=== PATIENT | female | born 1970 | race Caucasian/White ===

== ENCOUNTER 2017-06-08 17:36 | Emergency (ER) | payer BC ==
[2017-06-08 18:42] LABS: Absolute Lymphocytes (CBC) 2.4 K/uL (0.7-4.9); Absolute Monocytes 0.6 K/uL (0.1-1.3); Absolute Neutrophil 7.7 K/uL (1.8-8.0); Basophils % 0.6 % (0-1.3); Eosinophils % 0.8 % (0-4.4); Hematocrit 42.8 % (36.0-45.0); Lymphocytes % 22.7 % (15.3-44.8); MCH 27.9 pg (27.0-35.0); MPV 8.8 fL (7.6-11.3); Monocytes % 5.2 % (3.3-12.3); RBC Red Blood Cell Count 5.36 M/uL (3.86-4.86)
[2017-06-08 18:54] LABS: Bicarbonate 26 mEq/L (21-31); Glucose Level 179 mg/dL (65-120); Lipase 19 U/L (22-51); Potassium 3.3 mEq/L (3.6-5.0); Sodium Level 136 mEq/L (135-145)
[2017-06-08] MEDS ORDERED: ONDANSETRON 4 MG/2 ML VIAL ONE (18:56)
[2017-06-08] MEDS ORDERED: NA CHLORIDE 0.9% 1,000 ML ONE (18:56)
[2017-06-08 19:00] LABS: ALT/SGPT 21 IU/L (10-60); AST/SGOT 19 IU/L (10-42); Albumin 4.3 g/dL (3.2-5.5); Alkaline Phosphatase 65 IU/L (42-121); Amylase Level 47 U/L (28-100); BUN Blood Urea Nitrogen 8 mg/dL (6-20); Bilirubin Direct 0.2 mg/dL (0-0.2); Glomerular Filtration Rate > 90 mL/min (=/>90); Protein, Total 7.5 g/dL (6.0-8.3)
[2017-06-08 19:31] LABS: Thyroid Stimulating Hormone 1.42 uIU/mL (0.34-5.60)
[2017-06-08] MEDS ORDERED: POTASSIUM CL SA 10 MEQ TAB PO ONE (19:59)
[2017-06-08] MEDS ORDERED: MECLIZINE HCL 12.5 MG TAB ONE (20:35)
--- NOTE | 2017-06-08 21:03 | ER ---
Nurse's Notes [facility] Name: Kandice Cisneros Age: 46 yrs Sex: Female : 1970 Arrival Date: 06/08/2017 Time: 17:36 Bed 20 Private MD: Diagnosis: Nausea and vomiting;Dizziness and giddiness Presentation: 06/08 18:03 Presenting complaint: Patient states: N/V and dizziness x 3 days. Not tolerating hb liquids. Actively vomiting in triage. Transition of care: patient was not received from another setting of care. Onset of symptoms was June 06, 2017. Care prior to arrival: None. 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 - Social history:: Smoking status: Patient/guardian denies using tobacco. Screenin:30 Abuse screen: Denies threats or abuse. Denies injuries from another. Nutritional aj1 screening: No deficits noted. Tuberculosis screening: No symptoms or risk factors identified. 21:52 Fall Risk None identified. aj1 Assessment: 18:30 General: Appears in no apparent distress. uncomfortable, Behavior is calm, cooperative, aj1 appropriate for age. Pain: Denies pain. 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 Full function Speech is normal, Facial symmetry appears normal, Reports dizziness. Cardiovascular: Patient's skin is warm and dry. Respiratory: Airway is patent Respiratory effort is even, unlabored, Respiratory pattern is regular, symmetrical, Breath sounds are clear bilaterally. GI: Abdomen is non-distended, Bowel sounds present X 4 quads. Abd is soft and non tender X 4 quads. Reports nausea, vomiting, Patient currently denies bloody stool, constipation, diarrhea. : No signs and/or symptoms were reported regarding the genitourinary system. EENT: No signs and/or symptoms were reported regarding the EENT system. Derm: No signs and/or symptoms reported regarding the dermatologic system. Skin is pink, warm \T\ dry. normal. Musculoskeletal: No signs and/or symptoms reported regarding the musculoskeletal system. Circulation, motion, and sensation intact. 19:45 Reassessment: PO challenge initiated. aj1 19:50 Reassessment: Patient appears in no apparent distress at this time. No changes from aj1 previously documented assessment. Patient and/or family updated on plan of care and expected duration. Pain level reassessed. Patient is alert, oriented x 3, equal unlabored respirations, skin warm/dry/pink. 21:00 Reassessment: Patient appears in no apparent distress at this time. No changes from aj1 previously documented assessment. Patient and/or family updated on plan of care and expected duration. Pain level reassessed. Patient is alert, oriented x 3, equal unlabored respirations, skin warm/dry/pink. 21:51 Reassessment: Patient appears in no apparent distress at this time. No changes from aj1 previously documented assessment. Patient and/or family updated on plan of care and expected duration. Pain level reassessed. Patient is alert, oriented x 3, equal unlabored respirations, skin warm/dry/pink. Vital Signs: 18:05 BP 222 / 110; Pulse 111; Resp 18; Temp 99; Pulse Ox 98% on R/A; Pain 2/10; hb 18:35 BP 154 / 82 Supine; Pulse 88; Resp 18; Pulse Ox 100% ; aj1 18:38 BP 172 / 81 Sitting; Pulse 86; aj1 18:41 BP 171 / 83 Standing; Pulse 90; aj1 19:18 BP 167 / 75; Pulse 87; Resp 18; Pulse Ox 98% on R/A; mt 20:31 BP 155 / 63; Pulse 89; Resp 16; Pulse Ox 100% on R/A; mt 21:50 BP 155 / 68; Pulse 82; Resp 18; Pulse Ox 99% ; aj1 ED Course: 17:36 Patient arrived in ED. as 18:00 Maty Quintero FNP-C is PHCP. kb 18:00 Prosper Verde MD is Attending Physician. kb 18:05 Triage completed. hb 18:05 Arm band placed on right wrist. hb 18:19 Narda Moeller, STEPHAN is Primary Nurse. aj1 18:30 Patient has correct armband on for positive identification. Bed in low position. Call aj1 light in reach. Side rails up X 1. Pulse ox on. NIBP on. 18:30 No provider procedures requiring assistance completed. Initial lab(s) drawn, by me, aj1 sent to lab. Inserted saline lock: 20 gauge in right antecubital area, using aseptic technique. Blood collected. 21:52 IV discontinued, intact, bleeding controlled, No redness/swelling at site. Pressure aj1 dressing applied. Administered Medications: 18:40 Drug: Zofran 4 mg Route: IVP; Site: right antecubital; aj1 19:44 Follow up: Response: No adverse reaction aj1 18:41 Drug: NS 0.9% 1000 ml Route: IV; Rate: 1000 ml; Site: right antecubital; aj1 19:44 Follow up: IV Status: Completed infusion; IV Intake: 1000ml aj1 19:45 Drug: Potassium Chloride 20 mEq Route: PO; aj1 20:19 Follow up: Response: No adverse reaction aj1 20:18 Drug: Meclizine 25 mg Route: PO; aj1 21:51 Follow up: Response: No adverse reaction aj1 Intake: 19:44 IV: 1000ml; Total: 1000ml. aj1 Outcome: 21:02 Discharge ordered by . leo 21:52 Discharged to home via wheelchair, with family. aj1 21:52 Condition: good 21:52 Discharge instructions given to patient, Instructed on discharge instructions, follow up and referral plans. medication usage, Demonstrated understanding of instructions, follow-up care, medications. 21:53 Patient left the ED. aj1 Signatures: Maty Quintero, ANGELES-C ANGELES-CkNarda Oliveira, RN RN aj1 Miracle Watt Heather, RN RN Francesco Sunst. [facility]
--- NOTE | 2017-06-08 21:03 | EDPHYS ---
Physician Documentation [facility] Name: Kandice Cisneros Age: 46 yrs Sex: Female : 1970 Arrival Date: 06/08/2017 Time: 17:36 Bed 20 Private MD: ED Physician Prosper Verde HPI: 06/08 18:13 This 46 yrs old Female presents to ER via Ambulatory with complaints of kb Dizziness, Vomiting. 18:13 The patient presents to the emergency department with nausea, vomiting. Onset: The kb symptoms/episode began/occurred 2 day(s) ago. Possible causes: unknown. The symptoms are aggravated by nothing. The symptoms are alleviated by nothing. Associated signs and symptoms: Pertinent positives: nausea, vomiting. Severity of symptoms: At their worst the symptoms were moderate in the emergency department the symptoms are unchanged. The patient has not experienced similar symptoms in the past. The patient has not recently seen a physician. 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 - Social history:: Smoking status: Patient/guardian denies using tobacco. ROS: 18:13 Constitutional: Negative for fever, chills, and weight loss, ENT: Negative for injury, kb pain, and discharge, Neck: Negative for injury, pain, and swelling, Cardiovascular: Negative for chest pain, palpitations, and edema, Respiratory: Negative for shortness of breath, cough, wheezing, and pleuritic chest pain, : Negative for injury, bleeding, discharge, and swelling, MS/Extremity: Negative for injury and deformity, Skin: Negative for injury, rash, and discoloration. 18:13 Abdomen/GI: Positive for nausea and vomiting, Negative for abdominal pain, diarrhea, constipation, abdominal cramps, abdominal distension, anorexia. 18:13 Neuro: Positive for dizziness, Negative for altered mental status, gait disturbance, headache, hearing loss, loss of consciousness, numbness, seizure activity, speech changes, syncope, near syncope, tingling, tinnitus, tremor, visual changes, weakness. Exam: 18:15 Constitutional: This is a well developed, well nourished patient who is awake, alert, kb and in no acute distress. Head/Face: Normocephalic, atraumatic. ENT: Nares patent. No nasal discharge, no septal abnormalities noted. Tympanic membranes are normal and external auditory canals are clear. Oropharynx with no redness, swelling, or masses, exudates, or evidence of obstruction, uvula midline. Mucous membranes moist. Neck: Trachea midline, no thyromegaly or masses palpated, and no cervical lymphadenopathy. Supple, full range of motion without nuchal rigidity, or vertebral point tenderness. No Meningismus. Chest/axilla: Normal chest wall appearance and motion. Nontender with no deformity. No lesions are appreciated. Cardiovascular: Regular rate and rhythm with a normal S1 and S2. No gallops, murmurs, or rubs. Normal PMI, no JVD. No pulse deficits. Respiratory: Lungs have equal breath sounds bilaterally, clear to auscultation and percussion. No rales, rhonchi or wheezes noted. No increased work of breathing, no retractions or nasal flaring. Abdomen/GI: Soft, non-tender, with normal bowel sounds. No distension or tympany. No guarding or rebound. No evidence of tenderness throughout. Back: No spinal tenderness. No costovertebral tenderness. Full range of motion. Skin: Warm, dry with normal turgor. Normal color with no rashes, no lesions, and no evidence of cellulitis. MS/ Extremity: Pulses equal, no cyanosis. Neurovascular intact. Full, normal range of motion. Neuro: Awake and alert, GCS 15, oriented to person, place, time, and situation. Cranial nerves II-XII grossly intact. Motor strength 5/5 in all extremities. Sensory grossly intact. Cerebellar exam normal. Normal gait. Vital Signs: 18:05 BP 222 / 110; Pulse 111; Resp 18; Temp 99; Pulse Ox 98% on R/A; Pain 2/10; hb 18:35 BP 154 / 82 Supine; Pulse 88; Resp 18; Pulse Ox 100% ; aj1 18:38 BP 172 / 81 Sitting; Pulse 86; aj1 18:41 BP 171 / 83 Standing; Pulse 90; aj1 19:18 BP 167 / 75; Pulse 87; Resp 18; Pulse Ox 98% on R/A; mt 20:31 BP 155 / 63; Pulse 89; Resp 16; Pulse Ox 100% on R/A; mt 21:50 BP 155 / 68; Pulse 82; Resp 18; Pulse Ox 99% ; aj1 MDM: 18:07 Patient medically screened. kb 18:14 Data reviewed: vital signs, nurses notes. Data interpreted: Pulse oximetry: on room air kb is 98 %. Interpretation: normal. 19:31 Counseling: I had a detailed discussion with the patient and/or guardian regarding: the kb historical points, exam findings, and any diagnostic results supporting the discharge/admit diagnosis, lab results, the need for outpatient follow up, a family practitioner, to return to the emergency department if symptoms worsen or persist or if there are any questions or concerns that arise at home. 06/08 18:12 Order name: Amylase, Serum; Complete Time: 19:33 kb 06/08 18:12 Order name: Basic Metabolic Panel; Complete Time: 19:33 kb 06/08 18:12 Order name: CBC with Diff; Complete Time: 18:54 kb 06/08 18:12 Order name: Hepatic Function; Complete Time: 19:33 kb 06/08 18:12 Order name: Lipase; Complete Time: 19:33 kb 06/08 18:12 Order name: IV Saline Lock; Complete Time: 18:41 kb 06/08 18:12 Order name: Labs collected and sent; Complete Time: 18:41 kb 06/08 18:12 Order name: Urine Dipstick-Ancillary (obtain specimen); Complete Time: 18:41 kb 06/08 18:24 Order name: Thyroid Stimulating Hormone; Complete Time: 19:33 EDMS 06/08 18:12 Order name: Orthostatics; Complete Time: 18:40 kb 06/08 19:14 Order name: PO challenge; Complete Time: 19:45 kb Administered Medications: 18:40 Drug: Zofran 4 mg Route: IVP; Site: right antecubital; aj1 19:44 Follow up: Response: No adverse reaction aj1 18:41 Drug: NS 0.9% 1000 ml Route: IV; Rate: 1000 ml; Site: right antecubital; aj1 19:44 Follow up: IV Status: Completed infusion; IV Intake: 1000ml aj1 19:45 Drug: Potassium Chloride 20 mEq Route: PO; aj1 20:19 Follow up: Response: No adverse reaction aj1 20:18 Drug: Meclizine 25 mg Route: PO; aj1 21:51 Follow up: Response: No adverse reaction aj1 Disposition: 06/09 06:48 Co-signature as Attending Physician, Prosper Verde MD I agree with the assessment and kady plan of care. Disposition: 06/08/17 21:02 Discharged to Home. Impression: Nausea and vomiting, Dizziness and giddiness. - Condition is Stable. - Discharge Instructions: Nausea and Vomiting, [id number], Dizziness, [id number]. - Prescriptions for Meclizine 25 mg Oral Tablet - take 1 tablet by ORAL route every 8 hours As needed; 21 tablet. Zofran 4 mg Oral Tablet - take 1 tablet by ORAL route every 6 hours As needed; 20 tablet. - Medication Reconciliation Form, Thank You Letter, Antibiotic Education, Prescription Opioid Use, Work release form form. - Follow up: Emergency Department; When: As needed; Reason: Worsening of condition. Follow up: Private Physician; When: 2 - 3 days; Reason: Recheck today's complaints, Continuance of care, Re-evaluation by your physician. 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 [facility]
== END 2017-06-08 21:53 | disposition home or self-care (01) ==
LOC: ER 17:36
DX: R42 Dizziness and giddiness (principal); Z88.6 Allergy status to analgesic agent
CPT/HCPCS: 36415; 80048; 80076; 82150; 83690; 84443; 85025; 96361; 96374; 99284; J2405; J7030

== ENCOUNTER 2018-03-05 03:39 | Emergency (ER) | payer BC ==
--- NOTE | 2018-03-05 04:57 | EDPHYS ---
Physician Documentation [facility] Name: Kandice Cisneros Age: 47 yrs Sex: Female : 1970 Arrival Date: 03/05/2018 Time: 03:42 Bed 6 Private MD: ED Physician Prosper Verde HPI: 03/05 04:48 This 47 yrs old Female presents to ER via Ambulatory with complaints of kady Foreign Body In Ear. 04:48 The patient presents with a foreign body sensation, pain. The complaints affect the kady right ear. Onset: The symptoms/episode began/occurred just prior to arrival. Modifying factors: The symptoms are alleviated by nothing, the symptoms are aggravated by nothing. Associated signs and symptoms: The patient has no apparent associated signs or symptoms. Severity of symptoms: At their worst the symptoms were mild moderate in the emergency department the symptoms are unchanged. The patient has not experienced similar symptoms in the past. Historical: - Allergies: 03:58 No Known Allergies; fc - Home Meds: 03:58 None [Active]; fc - PMHx: 03:58 None; fc - PSHx: 03:58 Leg surg; fc - Immunization history:: Last tetanus immunization: unknown, Flu vaccine is not up to date. - Social history:: Smoking status: Patient/guardian denies using tobacco, Patient/guardian denies using alcohol, street drugs. - Ebola Screening: : Patient negative for fever greater than or equal to 101.5 degrees Fahrenheit, and additional compatible Ebola Virus Disease symptoms Patient denies exposure to infectious person Patient denies travel to an Ebola-affected area in the 21 days before illness onset. - Family history:: not pertinent. ROS: 04:50 Constitutional: Negative for fever, chills, and weight loss, Eyes: Negative for injury, kady pain, redness, and discharge, Neck: Negative for injury, pain, and swelling, Cardiovascular: Negative for chest pain, palpitations, and edema, Respiratory: Negative for shortness of breath, cough, wheezing, and pleuritic chest pain, Abdomen/GI: Negative for abdominal pain, nausea, vomiting, diarrhea, and constipation, Back: Negative for injury and pain, : Negative for injury, bleeding, discharge, and swelling, MS/Extremity: Negative for injury and deformity, Skin: Negative for injury, rash, and discoloration, Neuro: Negative for headache, weakness, numbness, tingling, and seizure, Psych: Negative for depression, anxiety, suicide ideation, homicidal ideation, and hallucinations, Allergy/Immunology: Negative for hives, rash, and allergies, Endocrine: Negative for neck swelling, polydipsia, polyuria, polyphagia, and marked weight changes, Hematologic/Lymphatic: Negative for swollen nodes, abnormal bleeding, and unusual bruising. 04:50 ENT: Positive for ear pain, foreign body sensation. Exam: 04:50 Constitutional: This is a well developed, well nourished patient who is awake, alert, kady and in no acute distress. Head/Face: Normocephalic, atraumatic. Eyes: Pupils equal round and reactive to light, extra-ocular motions intact. Lids and lashes normal. Conjunctiva and sclera are non-icteric and not injected. Cornea within normal limits. Periorbital areas with no swelling, redness, or edema. Neck: Trachea midline, no thyromegaly or masses palpated, and no cervical lymphadenopathy. Supple, full range of motion without nuchal rigidity, or vertebral point tenderness. No Meningismus. Chest/axilla: Normal chest wall appearance and motion. Nontender with no deformity. No lesions are appreciated. Cardiovascular: Regular rate and rhythm with a normal S1 and S2. No gallops, murmurs, or rubs. Normal PMI, no JVD. No pulse deficits. Respiratory: Lungs have equal breath sounds bilaterally, clear to auscultation and percussion. No rales, rhonchi or wheezes noted. No increased work of breathing, no retractions or nasal flaring. Abdomen/GI: Soft, non-tender, with normal bowel sounds. No distension or tympany. No guarding or rebound. No evidence of tenderness throughout. Back: No spinal tenderness. No costovertebral tenderness. Full range of motion. Female : Normal external genitalia. Skin: Warm, dry with normal turgor. Normal color with no rashes, no lesions, and no evidence of cellulitis. MS/ Extremity: Pulses equal, no cyanosis. Neurovascular intact. Full, normal range of motion. Neuro: Awake and alert, GCS 15, oriented to person, place, time, and situation. Cranial nerves II-XII grossly intact. Motor strength 5/5 in all extremities. Sensory grossly intact. Cerebellar exam normal. Normal gait. Psych: Awake, alert, with orientation to person, place and time. Behavior, mood, and affect are within normal limits. 04:50 ENT: External ear(s): right ear foreign body, pain with movement. Vital Signs: 03:51 BP 187 / 91; Pulse 100; Resp 20; Temp 99.0(O); Pulse Ox 98% on R/A; Weight 81.65 kg fc (R); Height 5 ft. 3 in. (160.02 cm) (R); Pain 5/10; 04:58 BP 157 / 78; Pulse 96; Resp 18; Pulse Ox 98% on R/A; ea 03:51 Body Mass Index 31.89 (81.65 kg, 160.02 cm) Procedures: 04:50 Foreign Body Removal: from the right ear canal, by using alligator clamps, Dressing: kady none. MDM: 04:07 Patient medically screened. kady Administered Medications: No medications were administered Disposition: 03/05/18 04:56 Discharged to Home. Impression: Foreign body in ear - right, removed. - Condition is Stable. - Discharge Instructions: Ear Foreign Body, Ear Foreign Body, [id number]. - Medication Reconciliation Form, Thank You Letter, Antibiotic Education, Prescription Opioid Use form. - Follow up: Private Physician; When: 2 - 3 days; Reason: Recheck today's complaints, Continuance of care, Re-evaluation by your physician. Follow up: Jemma Ruiz MD; When: 2 - 3 days; Reason: Recheck today's complaints, Continuance of care, Re-evaluation by your physician. - Problem is new. - Symptoms have improved. Signatures: Prosper Verde MD MD cha Chretien, Felicia, RN RN Bhumika Bauer RN RN ea Corrections: (The following items were deleted from the chart) 05:00 04:56 03/05/2018 04:56 Discharged to Home. Impression: Foreign body in ear - right, ea removed. Condition is Stable. Forms are Medication Reconciliation Form, Thank You Letter, Antibiotic Education, Prescription Opioid Use. Follow up: Private Physician; When: 2 - 3 days; Reason: Recheck today's complaints, Continuance of care, Re-evaluation by your physician. Follow up: Jemma Ruiz; When: 2 - 3 days; Reason: Recheck today's complaints, Continuance of care, Re-evaluation by your physician. Problem is new. Symptoms have improved. kady
--- NOTE | 2018-03-05 04:57 | ER ---
Nurse's Notes [facility] Name: Kandice Cisneros Age: 47 yrs Sex: Female : 1970 Arrival Date: 03/05/2018 Time: 03:42 Bed 6 Private MD: Diagnosis: Foreign body in ear-right, removed Presentation: 03/05 03:51 Presenting complaint: Patient states: that she was listening to her ear phones and when fc she pulled them out noted that the right one's end plastic rubber piece was missing. Is in her ear canal. States she tried to get it out with her long fingernails but was unable to. Transition of care: patient was not received from another setting of care. Onset of symptoms was March 05, 2018 at 03:30. Risk Assessment: Do you want to hurt yourself or someone else? Patient reports no desire to harm self or others. Initial Sepsis Screen: Does the patient meet any 2 criteria? HR > 90 bpm. Yes Does the patient have a suspected source of infection? No. Patient's initial sepsis screen is negative. Care prior to arrival: None. 03:51 Method Of Arrival: Ambulatory 03:51 Acuity: JUANITA 4 Triage Assessment: 03:51 General: Appears uncomfortable, obese, Behavior is calm, cooperative, appropriate for age. Pain: Complains of pain in right ear Pain currently is 5 out of 10 on a pain scale. Quality of pain is described as aching, Pain began 30 min ago. Is continuous. EENT: Ear canal w/ foreign body noted from right ear. Neuro: Level of Consciousness is awake, alert, obeys commands, Oriented to person, place, time, situation. Cardiovascular: No deficits noted. Respiratory: No deficits noted. GI: No deficits noted. : No deficits noted. Derm: Skin is pink, warm \T\ dry. Musculoskeletal: Circulation, motion, and sensation intact. Capillary refill < 3 seconds, Range of motion: intact in all extremities. Historical: - Allergies: 03:58 No Known Allergies; fc - Home Meds: 03:58 None [Active]; fc - PMHx: 03:58 None; fc - PSHx: 03:58 Leg surg; fc - Immunization history:: Last tetanus immunization: unknown, Flu vaccine is not up to date. - Social history:: Smoking status: Patient/guardian denies using tobacco, Patient/guardian denies using alcohol, street drugs. - Ebola Screening: : Patient negative for fever greater than or equal to 101.5 degrees Fahrenheit, and additional compatible Ebola Virus Disease symptoms Patient denies exposure to infectious person Patient denies travel to an Ebola-affected area in the 21 days before illness onset. - Family history:: not pertinent. Screenin:57 Abuse screen: Denies threats or abuse. Nutritional screening: No deficits noted. fc Tuberculosis screening: No symptoms or risk factors identified. Fall Risk None identified. Assessment: 03:57 Reassessment: see triage assessment. fc 04:57 Reassessment: Patient and/or family updated on plan of care and expected duration. Pain ea level reassessed. Patient is alert, oriented x 3, equal unlabored respirations, skin warm/dry/pink. Discharge instructions given to patient, verbalized the understanding of instruction. Vital Signs: 03:51 BP 187 / 91; Pulse 100; Resp 20; Temp 99.0(O); Pulse Ox 98% on R/A; Weight 81.65 kg fc (R); Height 5 ft. 3 in. (160.02 cm) (R); Pain 5/10; 04:58 BP 157 / 78; Pulse 96; Resp 18; Pulse Ox 98% on R/A; ea 03:51 Body Mass Index 31.89 (81.65 kg, 160.02 cm) ED Course: 03:42 Patient arrived in ED. ag3 03:51 Arm band placed on Patient placed in an exam room, on a stretcher. fc 03:55 Triage completed. fc 03:57 Patient has correct armband on for positive identification. Bed in low position. Call fc light in reach. 03:57 No provider procedures requiring assistance completed. Patient did not have IV access fc during this emergency room visit. 04:07 Prosper Verde MD is Attending Physician. kady 04:54 Jemma Ruiz MD is Referral Physician. kady Administered Medications: No medications were administered Outcome: 04:56 Discharge ordered by . kady 04:58 Condition: improved ea 04:59 Discharged to home ambulatory. ea 04:59 Discharge instructions given to patient, Instructed on discharge instructions, follow up and referral plans. Demonstrated understanding of instructions, follow-up care. 05:00 Patient left the ED. ea Signatures: Prosper Verde MD MD cha Chretien, Felicia RN RN Bhumika Bauer RN RN Marguerite Martin ag3
== END 2018-03-05 05:00 | disposition home or self-care (01) ==
LOC: ER 03:39
PROC: 09C37ZZ Extirpation of Matter from Right External Auditory Canal, Via Natural or Artificial Opening (ICD-10-PCS; principal; 2018-03-05)
DX: T16.1XXA Foreign body in right ear, initial encounter (principal); X58.XXXA Exposure to other specified factors, initial encounter
CPT/HCPCS: 99281